=== PATIENT | female | born 1955 | race Caucasian/White ===

== ENCOUNTER 2016-12-30 01:01 | Emergency (ER) | payer OTHER ==
[2016-12-30 01:03] VITALS: BP 210/101; PULSE 92; RESP 20; TEMP 98.8; O2SAT 96
[2016-12-30] MEDS ORDERED: SODIUM CHLOR 0.9% 1000 ML INJ 1,000 ML IV ONE (04:30)
[2016-12-30] MEDS ORDERED: ONDANSETRON HCL 4 MG/2 ML VIAL IV PUSH ONE (04:30)
[2016-12-30] MEDS ORDERED: MORPHINE SULFATE 4 MG/ML INJ IV PUSH ONE (04:30)
[2016-12-30] MEDS ORDERED: KETOROLAC TROMETHAMINE 30 MG/ML (IVP) VIAL IV PUSH ONE (04:30)
[2016-12-30 05:05] LABS: AUTOMATED NEUTROPHIL # 7.9 TH/MM3 (1.8-7.7); BASOPHIL # 0.1 TH/MM3 (0-0.2); BASOPHIL % 0.5 % (0.0-2.0); EOSINOPHIL # 0.1 TH/MM3 (0-0.4); EOSINOPHIL % 0.6 % (0.0-4.0); HEMO FLAGS DIFF FINAL; LYMPH % 24.1 % (9.0-44.0); LYMPHOCYTE # 2.8 TH/MM3 (1.0-4.8); MEAN CELL VOLUME 86.2 FL (80.0-100.0); MEAN CORPUSCULAR HEMOGLOBIN 28.3 PG (27.0-34.0); MEAN CORPUSCULAR HGB CONC 32.9 % (32.0-36.0); MONO % 6.6 % (0.0-8.0); NEUT % 68.2 % (16.0-70.0); PLATELET COUNT 244 TH/MM3 (150-450); RED BLOOD COUNT 5.11 MIL/MM3 (4.00-5.30); RED CELL DISTRIBUTION WIDTH 12.9 % (11.6-17.2); WHITE BLOOD COUNT 11.7 TH/MM3 (4.0-11.0)
[2016-12-30 05:31] LABS: BACTERIA, URINE RARE /hpf; BLOOD, URINE NEG (NEG); COMMENT (UR) CULT NOT INDICATED; CULTURE IF INDICATED CULT NOT INDICATED; GLUCOSE,URINE NEG (NEG); KETONE, URINE NEG (NEG); NITRITE,URINE NEG (NEG); SQUAMOUS EPITHELIAL CELL URINE <1 /hpf (0-5); URINE COLOR YELLOW (YELLW/STRAW)
--- NOTE | 2016-12-30 05:31 | RADRPT ---
EXAM DATE/TIME: 12/30/2016 04:52 [facility] COMPARISON: No previous studies available for comparison. INDICATIONS : Right flank pain. ORAL CONTRAST: No oral contrast ingested. RADIATION DOSE: 28.36 CTDIvol (mGy) MEDICAL HISTORY : None SURGICAL HISTORY : None. ENCOUNTER: Initial ACUITY: 1 day PAIN SCALE: 10/10 LOCATION: Right flank TECHNIQUE: Volumetric scanning of the abdomen and pelvis was performed. Using automated exposure control and ad justment of the mA and/or kV according to patient size, radiation dose was kept as low as reasonably achievable to obtain optimal diagnostic quality images. FINDINGS: LOWER LUNGS: The visualized lower lungs are clear. LIVER: Homogeneous density without lesion. There is no dilation of the biliary tree. No calcified gallston es. SPLEEN: Normal size without lesion. PANCREAS: Within normal limits. KIDNEYS: Normal in size and shape. There is no mass, stone, or hydronephrosis. ADRENAL GLANDS: Within normal limits. VASCULAR: There is no aortic aneurysm. BOWEL/MESENTERY: The stomach, small bowel, and colon demonstrate no acute abnormality. There is no free intraperitone al air or fluid. ABDOMINAL WALL: Within normal limits. RETROPERITONEUM: There is no lymphadenopathy. BLADDER: No wall thickening or mass. REPRODUCTIVE: Within normal limits. INGUINAL: There is no lymphadenopathy or hernia. MUSCULOSKELETAL: Within normal limits for patient age. CONCLUSION: 1. The kidneys, ureters and bladder are unremarkable with no renal calculi or obstruction. 2. The remainder of the study is unremarkable. Bernardo Martins MD on December 30, 2016 at 5:27 Board Certified Radiologist. This report was verified electronically.
[2016-12-30 05:33] LABS: ALT (GPT) 45 U/L (10-53); ANION GAP 7 MEQ/L (5-15); AST (GOT) 21 U/L (15-37); BICARBONATE 29.8 MEQ/L (21.0-32.0); BLOOD UREA NITROGEN 13 MG/DL (7-18); CHLORIDE 105 MEQ/L (98-107); GLOMERULAR FILTRATION RATE 64 ML/MIN (>89); POTASSIUM 4.3 MEQ/L (3.5-5.1); SODIUM (NA) 142 MEQ/L (136-145)
[2016-12-30 05:36] LABS: ALKALINE PHOSPHATASE 128 U/L (45-117); TOTAL BILIRUBIN ADULT 0.4 MG/DL (0.2-1.0)
--- NOTE | 2016-12-30 05:48 | RADRPT ---
EXAM DATE/TIME: 12/30/2016 05:15 [facility] COMPARISON: No previous studies available for comparison. INDICATIONS : Radiating bands of pain from posterior to anterior along the right flank, right uretheral stone. MEDICAL HISTORY : None. SURGICAL HISTORY : None. ENCOUNTER: Initial ACUITY: 1 day PAIN SCORE: 8/10 LOCATION: Right flank back FINDINGS: There is normal alignment of the thoracic vertebral bodies. Vertebral body height is maintained. No evidence of fracture or subluxation. Pedicles are intact at all levels. There are mild degenerative changes with sclerosis and slight spurring. The paravertebral reflections are not thickened. CONCLUSION: Mild degenerative change. Bernardo Martins MD on December 30, 2016 at 5:44 Board Certified Radiologist. This report was verified electronically.
[2016-12-30] MEDS ORDERED: NORC5TAB PO (06:08)
--- NOTE | 2016-12-30 06:09 | PD ---
HPI Chief Complaint: Back/ Neck Pain or Injury Time Seen by Provider: 04:08 Travel History International Travel<30 days: No Contact w/Intl Traveler<30days: No Traveled to known affect area: No History of Present Illness HPI Patient is a 61-year-old female who comes in complaining of back pain that radiates to her front. She said it started this evening and got so bad it hurts to take a deep breath. She's had some nausea. She denies any fever or chills. She denies any urinary symptoms. She says she went to her chiropractor in the afternoon and the pain started shortly afterwards. She denies any direct injury to her back. She denies numbness or tingling in her extremities. PFSH Past Medical History Arthritis: Yes Heart Rhythm Problems: No Cardiomyopathy: No COPD: No Diabetes: No Musculoskeletal: Yes Past Surgical History Cholecystectomy: Yes Hysterectomy: Yes Social History Tobacco Use: No Allergies-Medications (Allergen,Severity, Reaction): Coded Allergies: Chaya (Verified Allergy, Unknown, 12/30/16) Benadryl (Verified Allergy, Unknown, 12/30/16) Penicillin (Verified Allergy, Unknown, 12/30/16) Reported Meds & Prescriptions Reported Meds & Active Scripts Active [place] (Hydrocodone-Acetaminophen) 5-325 mg Tab 1 Tab PO Q6H PRN Review of Systems Except as stated in HPI: all other systems reviewed are Neg General / Constitutional: No: Fever, Chills HENT: No: Headaches, Lightheadedness Cardiovascular: No: Chest Pain or Discomfort Respiratory: No: Shortness of Breath Gastrointestinal: Positive: Nausea, Abdominal Pain Genitourinary: No: Dysuria, Hematuria Musculoskeletal: Positive: Pain Skin: No Rash, No Change in Pigmentation Neurologic: No: Weakness, Dizziness, Sensory Disturbance Physical Exam Narrative GENERAL: Awake and alert, in no acute distress. SKIN: Focused skin assessment warm/dry. No rashes. HEAD: Atraumatic. Normocephalic. EYES: Pupils equal and round. No scleral icterus. ENT: Mucous membranes pink and moist. NECK: Trachea midline. No JVD. CARDIOVASCULAR: Regular rate and rhythm. No murmur appreciated. RESPIRATORY: No accessory muscle use. Clear to auscultation. Breath sounds equal bilaterally. GASTROINTESTINAL: Abdomen soft, non-tender, nondistended. Right sided CVA tenderness. MUSCULOSKELETAL: No obvious deformities. No clubbing. No cyanosis. No edema. Tender to palpation of the middle of the thoracic spine. NEUROLOGICAL: Awake and alert. No obvious cranial nerve deficits. Motor grossly within normal limits. Normal speech. PSYCHIATRIC: Appropriate mood and affect; insight and judgment normal. Data Data Last Documented VS Vital Signs Date Time Temp Pulse Resp B/P Pulse Ox O2 Delivery O2 Flow Rate FiO2 12/30/16 06:50 180/88 12/30/16 01:03 98.8 92 20 96 Room Air Orders Complete Blood Count With Diff (12/30/16 04:17) Comprehensive Metabolic Panel (12/30/16 04:17) Lipase (12/30/16 04:17) Urinalysis - C+S If Indicated (12/30/16 04:17) Ct Abd/Pel W/O Iv Contrast (12/30/16 ) Spine, Thoracic-Ap/Lat/Sw(3vw) (12/30/16 ) Iv Access Insert/Monitor (12/30/16 04:17) Sodium Chlor 0.9% 1000 Ml Inj (Ns 1000 M (12/30/16 04:30) Ketorolac Inj (Toradol Inj) (12/30/16 04:30) Morphine Inj (Morphine Inj) (12/30/16 04:30) Ondansetron Inj (Zofran Inj) (12/30/16 04:30) Labs Laboratory Tests Test 12/30/16 04:50 White Blood Count 11.7 TH/MM3 Red Blood Count 5.11 MIL/MM3 Hemoglobin 14.5 GM/DL Hematocrit 44.0 % Mean Corpuscular Volume 86.2 FL Mean Corpuscular Hemoglobin 28.3 PG Mean Corpuscular Hemoglobin 32.9 % Concent Red Cell Distribution Width 12.9 % Platelet Count 244 TH/MM3 Mean Platelet Volume 8.4 FL Neutrophils (%) (Auto) 68.2 % Lymphocytes (%) (Auto) 24.1 % Monocytes (%) (Auto) 6.6 % Eosinophils (%) (Auto) 0.6 % Basophils (%) (Auto) 0.5 % Neutrophils # (Auto) 7.9 TH/MM3 Lymphocytes # (Auto) 2.8 TH/MM3 Monocytes # (Auto) 0.8 TH/MM3 Eosinophils # (Auto) 0.1 TH/MM3 Basophils # (Auto) 0.1 TH/MM3 CBC Comment DIFF FINAL Differential Comment Urine Color YELLOW Urine Turbidity HAZY Urine pH 7.0 Urine Specific [place] 1.019 Urine Protein NEG mg/dL Urine Glucose (UA) NEG mg/dL Urine Ketones NEG mg/dL Urine Occult Blood NEG Urine Nitrite NEG Urine Bilirubin NEG Urine Urobilinogen LESS THAN 2.0 MG/DL Urine Leukocyte Esterase NEG Urine RBC 4 /hpf Urine WBC LESS THAN 1 /hpf Urine Squamous Epithelial <1 /hpf Cells Urine Bacteria RARE /hpf Microscopic Urinalysis Comment CULT NOT INDICATED Sodium Level 142 MEQ/L Potassium Level 4.3 MEQ/L Chloride Level 105 MEQ/L Carbon Dioxide Level 29.8 MEQ/L Anion Gap 7 MEQ/L Blood Urea Nitrogen 13 MG/DL Creatinine 0.90 MG/DL Estimat Glomerular Filtration 64 ML/MIN Rate Random Glucose 122 MG/DL Calcium Level 10.2 MG/DL Total Bilirubin 0.4 MG/DL Aspartate Amino Transf 21 U/L (AST/SGOT) Alanine Aminotransferase 45 U/L (ALT/SGPT) Alkaline Phosphatase 128 U/L Total Protein 7.6 GM/DL Albumin 3.9 GM/DL Lipase 209 U/L [facility] Medical Decision Making Medical Screen Exam Complete: Yes Emergency Medical Condition: Yes Differential Diagnosis Muscle strain versus UTI versus renal stone versus compression fracture Narrative Course Patient is a 61-year-old female comes in complaining of back pain that wraps around to her front. Exam shows right CVA tenderness. IV established, labs sent. Labs show no acute abnormalities. CT abdomen and pelvis performed shows no evidence of kidney stone or hydronephrosis. Thoracic spine x-ray shows no acute abnormalities, there are degenerative changes. Last 24 hours Impressions Thoracic Spine X-Ray 12/30/16 0000 Signed Impressions: Service Date/Time: Friday, December 30, 2016 05:15 - CONCLUSION: Mild degenerative change. Bernardo Martins MD Abdomen/Pelvis CT 12/30/16 0000 Signed Impressions: Service Date/Time: Friday, December 30, 2016 04:52 - CONCLUSION: 1. The kidneys , ureters and bladder are unremarkable with no renal calculi or obstruction. 2. The remainder of the study is unremarkable. Bernardo Martins MD Patient given IV fluids, Zofran, pain medicine. She reports feeling better. She'll be discharged with prescription for pain medicine. Advised follow-up with her doctor. Advised to return to the ED as needed for any worsening symptoms. Diagnosis Primary Impression: Back pain Qualified Code: M54.6 - Acute right-sided thoracic back pain Patient Instructions: Back Pain (ED), General Instructions Additional Instructions: Follow-up with your doctor. Take pain medicine as needed. Try stretching her back often. Return to the ED as needed for any worsening symptoms. Scripts Hydrocodone-Acetaminophen ([place])5-325 mg Tab1 Tab PO Q6H PRN (PAIN) #10 TAB Ref 0 Prov:Helen Kirkpatrick MD 12/30/16 Disposition: DISCHARGE HOME Condition: Stable Helen Kirkpatrick MD Dec 30, 2016 06:08
[2016-12-30 06:50] VITALS: BP 180/88
== END 2016-12-30 06:50 | disposition home or self-care (01) ==
LOC: NEPE 01:01
DX: M54.9 Dorsalgia, unspecified (principal)
CPT/HCPCS: 72072; 74176; 80053; 81001; 83690; 85025; 96361; 96374; 96375; 99285; J1885; J2270; J2405; J7030